=== PATIENT | female | born 1940 | race Caucasian/White ===

== ENCOUNTER 2017-06-09 14:44 | Outpatient (CLI) | payer MEDICARE, OTHER ==
--- NOTE | 2017-06-10 18:11 | XRAY Report ---
DATE OF SERVICE: 06/09/2017 THREE VIEW BILATERAL KNEES: 06/09/2017 CLINICAL INDICATION: DJD. AP, lateral, sunrise views of the bilateral knees demonstrate moderate bilateral osteoarthritis. There is no evidence of fracture or dislocation. No effusion is present on either side. IMPRESSION: Moderate bilateral knee osteoarthritis. TD: 06/10/2017 19:10
== END 2017-06-09 14:45 | disposition home or self-care (01) ==
LOC: DI 14:44
PROVIDERS: ATTEND Internal Medicine
DX: M17.0 Bilateral primary osteoarthritis of knee (principal)

== ENCOUNTER 2017-07-30 08:40 | Outpatient (CLI) | payer MEDICARE, OTHER ==
--- NOTE | 2017-07-31 17:57 | Mammography Report ---
DIGITAL SCREENING MAMMOGRAM: 07/30/2017 CLINICAL INDICATION: A 76-year-old with history of late childbearing, for screening. COMPARISON: 10/2006 TECHNIQUE: Routine CC and MLO projections were obtained of the breasts. FINDINGS: The breasts demonstrate heterogeneously dense fibroglandular parenchyma bilaterally. Coarse and punctate, typically benign calcifications are present. No suspicious masses, clustered microcalcifications, or regions of architectural distortion are identified. IMPRESSION: BENIGN FINDINGS. RECOMMENDATION: Routine annual screening unless otherwise clinically indicated. BIRADS category 2 benign findings. STANDARD QUALIFYING STATEMENTS 1. This examination was reviewed with the aid of Computed-Aided Detection (CAD). 2. A negative or benign imaging report should not delay biopsy if clinically suspicious findings are present. Consider surgical consultation if warranted. More than 5% of cancers are not identified by imaging. 3. Dense breasts may obscure an underlying neoplasm. TD: 07/31/2017 17:56
== END 2017-07-30 08:41 | disposition home or self-care (01) ==
LOC: DI.S 08:40
PROVIDERS: ATTEND Internal Medicine
DX: Z12.31 Encounter for screening mammogram for malignant neoplasm of breast (principal)
CPT/HCPCS: 77067

== ENCOUNTER 2017-09-08 08:44 | Outpatient (CLI) | payer MEDICARE, OTHER ==
--- NOTE | 2017-09-09 11:48 | DEXA Report ---
DEXA SCAN: 09/08/2017 CLINICAL INDICATION: Postmenopausal. TECHNIQUE: Dual energy x-ray absorptiometry (DXA) was performed on a Syn[employer] system. Regions measured are the AP spine, femoral neck, and, if needed, forearm. COMPARISON: None. In accordance with the International Society for Clinical Densitometry (ISCD) guidelines, data from previous exams may be reanalyzed using current recommendations and techniques. This is done to allow a more accurate basis for comparison with the current study. FINDINGS Data for the lumbar spine is as follows: REGION BMD (g/cm/cm) T-SCORE Z-SCORE L1 0.929 -1.7 0.2 L2 0.967 -1.9 0.0 L3 1.032 -1.4 0.5 L4 1.125 -0.6 1.3 L1-L4 1.019 -1.3 0.6 NOTE: All evaluable vertebrae are used for classification. Data for the hip is as follows: REGION BMD (g/cm/cm) T-SCORE Z-SCORE Neck 0.851 -1.3 0.8 TOTAL 0.784 -1.8 0.2 NOTE: The femoral neck or total proximal femur, whichever is lowest, is used for classification. IMPRESSION WHO CLASSIFICATION BASED ON THE INTERNATIONAL REFERENCE STANDARD IS OSTEOPENIA. FRACTURE RISK IS INCREASED. RECOMMENDATION: Patients with diagnosis of osteoporosis or osteopenia should have regular bone mineral density assessment. For those eligible for Medicare, routine testing is allowed once every 2 years. Testing frequency can be increased for patients who have rapidly progressing disease or for those who are receiving medical therapy to restore bone mass. COMMENT World Health Organization (WHO) definitions for osteoporosis and osteopenia: NORMAL BMD: T-score at 1.0 or higher, fracture risk is low. OSTEOPENIA BMD: T-score between 1.0 and -2.5, fracture risk is increased. OSTEOPOROSIS BMD: T-score at 2.5 or lower, fracture risk high. National Osteoporosis Foundation recommends: 1. Obtain adequate dietary calcium (at least 1200 mg per day) and vitamin D (400 -800 international units per day). 2. Participate, as appropriate, in regular weightbearing and muscle- strengthening exercise. 3. Avoid tobacco use and reduce alcohol and caffeine intake. 4. For more detailed information see the website at www.NOF.org. TD: 09/08/2017 10:14 MARINO
== END 2017-09-08 08:45 | disposition home or self-care (01) ==
LOC: DI 08:44
PROVIDERS: ATTEND Internal Medicine
DX: Z78.0 Asymptomatic menopausal state (principal); M85.89 Other specified disorders of bone density and structure, multiple sites
CPT/HCPCS: 77080

== ENCOUNTER 2018-07-07 08:26 | Outpatient (CLI) | payer MEDICARE, OTHER ==
[2018-07-07 10:46] LABS: BASOPHILS # (AUTO) 0.1 10^3/uL (0.0-0.1); BASOPHILS % (AUTO) 1.2 %; EOSINOPHILS # (AUTO) 0.1 10^3/uL (0.0-0.7); EOSINOPHILS % (AUTO) 2.3 %; HGB - HEMOGLOBIN 12.8 g/dL (12.0-16.0); LYMPHOCYTES # (AUTO) 1.2 10^3/uL (1.5-3.5); LYMPHOCYTES % (AUTO) 24.4 %; MEAN CORPUSCULAR HEMOGLOBIN 29.3 pg (27.0-31.0); MEAN CORPUSCULAR VOLUME 88.8 fL (81.0-99.0); MEAN PLATELET VOLUME 8.3 fL (7.9-10.8); MONOCYTES # (AUTO) 0.3 10^3/uL (0.0-1.0); MONOCYTES % (AUTO) 6.3 %; NEUTROPHILS # (AUTO) 3.3 10^3/uL (1.5-6.6); NEUTROPHILS % (AUTO) 65.8 %; PLT - PLATELET COUNT 298 10^3/uL (130-450); RED BLOOD COUNT 4.36 10^6/uL (4.20-5.40); RED CELL DISTRIBUTION WIDTH 13.9 % (12.0-15.0)
[2018-07-07 11:00] LABS: ALBUMIN 3.9 g/dL (3.2-5.5); ALBUMIN/GLOBULIN RATIO 1.2 (1.0-2.2); ALKALINE PHOSPHATASE 116 IU/L (42-121); ALT ALANINE AMINOTRANSFERASE 24 IU/L (10-60); AST ASPARTATE AMINOTRANSFERASE 29 IU/L (10-42); BILIRUBIN,TOTAL 0.8 mg/dL (0.2-1.0); BUN - BLOOD UREA NITROGEN 13 mg/dL (6-20); CALCIUM 9.3 mg/dL (8.5-10.3); CARBON DIOXIDE - CO2 29 mmol/L (21-32); CHLORIDE 103 mmol/L (101-111); CHOL/HDL RATIO 3.5 (<4.4); CHOLESTEROL 220 mg/dL; CREATININE 0.7 mg/dL (0.4-1.0); GFR - MDRD 81 (>89); GLUCOSE 92 mg/dL (70-100); HDL CHOLESTEROL 63 mg/dL; LDL CHOLESTEROL,CALCULATED 131 mg/dL; LDL/HDL RATIO 2.1 (<4.4); SODIUM 140 mmol/L (135-145); TOTAL PROTEIN 7.2 g/dL (6.7-8.2); VLDL CHOLESTEROL 26 mg/dL
== END 2018-07-07 08:27 | disposition home or self-care (01) ==
LOC: LAB.F 08:26
PROVIDERS: ATTEND Internal Medicine
DX: E78.5 Hyperlipidemia, unspecified (principal); M17.9 Osteoarthritis of knee, unspecified
CPT/HCPCS: 36415; 80053; 80061; 83721; 85025

== ENCOUNTER 2018-11-27 18:13 | Outpatient (CLI) | payer MEDICARE, OTHER ==
--- NOTE | 2018-11-30 08:09 | XRAY Report ---
Reason: COCCYX INJURY, CONTUSION Procedure Date: 11/27/2018 Accession Number: [id number] / [id number] Procedure: XR - Sacrum/Coccyx CPT Code: FULL RESULT: EXAM: SACRUM AND COCCYX RADIOGRAPHY 3 VIEWS EXAM DATE: 11/27/2018. HISTORY: Coccyx injury, fell. Contusion. COMPARISONS: None. TECHNIQUE: AP, angulated AP and lateral views. FINDINGS: Alignment: Normal. The sacrum and coccyx are normally aligned. Bones: Normal. No fracture or bone lesion. Joints: The hips and the sacroiliac joints appear normal. Marked disk narrowing and small osteophytes at L4-L5 and L5-S1. Soft Tissues: Mid pelvic calcifications could be calcified uterine fibroids or calcified lymph nodes from prior granulomatous disease. IMPRESSION: Normal examination of the sacrum and coccyx. Lower lumbar degenerative disk disease and spondylosis. RADIA
== END 2018-11-27 18:14 | disposition home or self-care (01) ==
LOC: DI 18:13
PROVIDERS: ATTEND Family Medicine
DX: S39.82XA Other specified injuries of lower back, initial encounter (principal); M51.36 Other intervertebral disc degeneration, lumbar region; M47.816 Spondylosis without myelopathy or radiculopathy, lumbar region
CPT/HCPCS: 72220

== ENCOUNTER 2020-02-17 07:00 | Outpatient (CLI) | payer MEDICARE, OTHER ==
[2020-02-17 21:15] LABS: BILIRUBIN,URINE NEGATIVE (NEGATIVE); GLUCOSE, URINE (UA) NEGATIVE (NEGATIVE); KETONES,URINE (UA) NEGATIVE (NEGATIVE); LEUKOCYTE ESTERASE, URINE NEGATIVE (NEGATIVE); NITRITE,URINE NEGATIVE (NEGATIVE); OCCULT BLOOD,URINE NEGATIVE (NEGATIVE); PH,URINE 6.5 PH (5.0-7.5); PROTEIN,URINE NEGATIVE (NEGATIVE); UROBILINOGEN,URINE 0.2 (NORMAL) E.U./dL (NORMAL)
[2020-02-17 21:19] LABS: CLARITY,URINE CLEAR (CLEAR)
[2020-02-17 21:34] LABS: BACTERIA,URINE Rare /HPF (None Seen); MUCUS,URINE Few Strands; RBC,URINE None Seen /HPF (0-5); SQUAMOUS EPITHELIAL CELL,UR RARE Squamous (<= Few)
== END 2020-02-17 23:59 | disposition home or self-care (01) ==
LOC: LAB.R 07:00
PROVIDERS: ATTEND Physician Assistant Medical
DX: M54.6 Pain in thoracic spine (principal); R10.9 Unspecified abdominal pain
CPT/HCPCS: 81001; 87086

== ENCOUNTER 2020-05-19 15:28 | Outpatient (CLI) | payer MEDICARE, OTHER ==
[2020-05-19 20:54] LABS: BASOPHILS # (AUTO) 0.1 10^3/uL (0.0-0.1); BASOPHILS % (AUTO) 1.2 %; EOSINOPHILS # (AUTO) 0.1 10^3/uL (0.0-0.7); EOSINOPHILS % (AUTO) 2.4 %; HGB - HEMOGLOBIN 12.9 g/dL (12.0-16.0); LYMPHOCYTES # (AUTO) 1.8 10^3/uL (1.5-3.5); LYMPHOCYTES % (AUTO) 30.8 %; MEAN CORPUSCULAR HEMOGLOBIN 29.1 pg (27.0-31.0); MEAN CORPUSCULAR HGB CONC 31.6 g/dL (32.0-36.0); MEAN CORPUSCULAR VOLUME 92.1 fL (81.0-99.0); MEAN PLATELET VOLUME 10.2 fL (7.9-10.8); MONOCYTES # (AUTO) 0.5 10^3/uL (0.0-1.0); MONOCYTES % (AUTO) 8.1 %; NEUTROPHILS # (AUTO) 3.4 10^3/uL (1.5-6.6); NEUTROPHILS % (AUTO) 57.3 %; PLT - PLATELET COUNT 311 10^3/uL (130-450); RED BLOOD COUNT 4.43 10^6/uL (4.20-5.40); RED CELL DISTRIBUTION WIDTH 12.7 % (12.0-15.0); WHITE BLOOD COUNT 5.9 x10^3/uL (4.8-10.8)
[2020-05-19 22:37] LABS: ALBUMIN 4.3 g/dL (3.2-5.5); ALBUMIN/GLOBULIN RATIO 1.5 (1.0-2.2); BILIRUBIN,TOTAL 0.7 mg/dL (0.2-1.0); CALCIUM 9.1 mg/dL (8.5-10.3); CREATININE 0.7 mg/dL (0.4-1.0); TOTAL PROTEIN 7.2 g/dL (6.7-8.2)
--- OUTSIDE RECORDS SUMMARY | 2020-05-24 01:43 | EXTERNAL MEDICAL SUMMARY RPT | Continuity of Care Document ---
:1940 Demographics Phone Unavailable Preferred Language Finnish Marital Status Unknown Moravian Affiliation Unknown Race Unknown Ethnic Group Unknown Author Organization [place] Address [address] [place] [address] Phone Care Team Providers Name Role Phone David Unavailable Unavailable MD Unavailable Unavailable Problems date description facility 2020-03-07 00:00:00 Asymptomatic varicose veins [facility] [place] 2020-03-07 00:00:00 Unspecified pruritic disorder [facility] [place] 2020-03-07 00:00:00 Backache, unspecified [facility] [place] 2020-03-07 00:00:00 COMPREHENSIVE METABOLIC PANEL [facility] 2020-03-07 00:00:00 CBC W/Diff/Plt [facility] [place] 2020-03-07 00:00:00 Asymptomatic [facility]icose [facility] unspecified lower extremity [place] 2020-03-07 00:00:00 Pruritus, unspecified [facility] [place] 2020-03-07 00:00:00 Dorsalgia, unspecified [facility] [place] 2020-03-07 00:00:00 Backache [facility] [place] 2020-03-07 00:00:00 Tobacco use and exposure [facility] [place] 2020-03-07 00:00:00 Never smoker [facility] [place] 2020-03-07 00:00:00 Pruritus of skin [facility] [place] 2020-03-07 00:00:00 Feeling down, depressed, or [facility] hopeless? [place] 2020-03-07 00:00:00 Patient Health Questionnaire 2 [facility] item (PHQ2) total score [place] 2020-03-07 00:00:00 Tobacco smoking status [facility] [place] 2020-03-07 00:00:00 Varicose veins of lower [facility] extremity [place] 2020-05-19 15:28 ELEVATED BLOOD-PRESSURE [facility] READING, W/O DIAGNOSIS OF HTN Allergies date description facility NIACIN AND RELATED formerly [facility] No Known Drug Allergies [facility] Results Social History date description facility 2020-03-07 00:00:00 Never smoker [facility] Social History date description facility 2020-03-07 00:00:00 Never smoker [facility] date description facility [id number]
== END 2020-05-19 15:29 | disposition home or self-care (01) ==
LOC: LAB.S 15:28
PROVIDERS: ATTEND Internal Medicine
DX: R03.0 Elevated blood-pressure reading, without diagnosis of hypertension (principal)
CPT/HCPCS: 36415; 80053; 85025

== ENCOUNTER 2020-12-20 14:51 | Outpatient (CLI) | payer MEDICARE, OTHER ==
--- NOTE | 2020-12-20 15:47 | XRAY Report ---
PROCEDURE: Ankle 3 View LT INDICATIONS: ANKLE PAIN, LEFT TECHNIQUE: 3 views of the ankle were acquired. COMPARISON: None FINDINGS: Bones: Focal bony irregularity can be seen involving the medial malleolus. No dislocations. Ankle m ortise is normally aligned. No suspicious bony lesions. The talar dome demonstrates an unremarkabl e appearance. There is a moderate plantar calcaneal spur. Soft tissues: Generalized soft tissue swelling is seen. There is focal calcification seen along the posterior plantar fascia. IMPRESSION: Focal bony irregularity is seen involving the inferior aspect of the medial malleolus. T his is attributed to an avulsion fracture, which is likely chronic, although it is age-indeterminate. In this patient with a given history of recent trauma, please correlate with focal tenderness. There is a moderate plantar calcaneal spur seen, with associated focal calcification along the drafter tool design ior aspect of the plantar fascia. Reviewed by: Jens Quiroga MD on 12/20/2020 2:46 PM ANSELMO Approved by: Jens Quiroga MD on 12/20/2020 2:46 PM ANSELMO Station ID: [id number]
== END 2020-12-20 14:52 | disposition home or self-care (01) ==
LOC: DI.S 14:51
PROVIDERS: ATTEND Internal Medicine
DX: S82.52XA Displaced fracture of medial malleolus of left tibia, initial encounter for closed fracture (principal); M77.32 Calcaneal spur, left foot

== ENCOUNTER 2021-02-20 10:32 | Outpatient (CLI) | payer MEDICARE, OTHER ==
--- NOTE | 2021-02-20 16:58 | XRAY Report ---
PROCEDURE: Ankle 3 View LT INDICATIONS: LEFT ANKLE PAIN TECHNIQUE: 3 views of the ankle were acquired. COMPARISON: None FINDINGS: Bones: No fractures or dislocations. Ankle mortise is normally aligned. No suspicious bony lesions . Soft tissues: No tibiotalar joint effusion. Achilles tendon appears normal. Calcifications of the plantar fascia. IMPRESSION: 1. Calcifications of the plantar fascia, suggestive of plantar fasciitis. Further assessment with MRI is recommended. 2. No acute fracture. No osseous lesion. If symptoms and/or clinical suspicion for pathology continue , further assessment with repeat plain films, or advanced imaging (e.g., CT, MRI, or bone scan) is re commended for further assessment. Reviewed by: Tee Reid MD on 02/20/2021 4:56 PM PDT Approved by: Tee Reid MD on 02/20/2021 4:56 PM PDT Station ID: [id number]
== END 2021-02-20 10:33 ==
LOC: DI.N 10:32
PROVIDERS: ATTEND Orthopaedic Surgery
DX: M25.572 Pain in left ankle and joints of left foot (principal); M25.872 Other specified joint disorders, left ankle and foot